=== PATIENT | female | born 1985 | race Hispanic/Latino ===

== ENCOUNTER 2018-03-15 17:30 | Observation (INO) | payer MEDICAID ==
[2018-03-15] MEDS ORDERED: TYLENOL PO ONE (18:41)
[2018-03-15] MEDS ORDERED: LACTATED RINGERS 1,000 ML IV ONE (18:41)
[2018-03-15 19:25] LABS: Bilirubin,Urine NEG (Negative); Blood,Urine NEG (Negative); Color,Urine Yellow (Yellow); Mucus,Urine FEW /HPF; Protein,Urine <15 mg/dL mg/dL (Negative); Urobilinogen,Urine < 2.0 mg/dL (<2.0)
--- NOTE | 2018-03-15 21:08 | History and Physical Report ---
History of Present Illness Date of examination: 03/15/18 History of present illness: Patient presented to the delivery triage with complaint of shortness of breath. The patient's observation her shortness of breath quickly resolves but was found to have persistent uterine contractions. Patient was given IV hydration without complete resolution resolution of contractions patient's cervix dilated 1 cm with no change. Patient was not given terbutaline to 2 complaining of shortness of breath patient about a history of asthma. Will admit for observation and possible sedation. Menstrual History Regularity: irregular Menses every: 30 days Duration: 5 LMP: 08/07/2017 LMP reliability: definite LMP character: heavier test type: urine test Date: 11/09/2017 BC at conception: none Planned ? no EDC Calculations LMP: 05/14/2018 EDC Confirmation: 05/14/2018 Past History : 2 Term Births: 1 Premature Births: 0 Living Children: 1 Para: 1 Mult. Births: 0 Prev : 0 Prev. attempt? 0 Aborta: 0 Elect. Ab: 0 Spont. Ab: 0 Ectopics: 0 # 1 Delivery date: 2013 Weeks Gestation: term labor: no Delivery type: Delivery location: [facility] Sex: Male weight: 9#4 Comments: Shoulder Dystocia Past Medical History: hyperhydrosis Past Surgical History: 2013 - breast augmentation Past Medical History Surgery (Non-respiratory manager): 2013 - breast augmentation Abnormal PAP: negative Family Hx: PGM - colon CA No hx Breast, ovarian or uterine CA Social Hx: Single no ETOH/Drugs/Smoking Infection History Hx of STD: none HIV Risk Eval: no Hepatitis B Risk Eval: low risk Personal hx. of genital herpes: no Partner hx. of genital herpes: no Rash, Viral, or Febrile illness since last LMP? no Varicella/Chicken Pox Status: Previous Disease Genetic History Congenital Heart Defect: Mom: no Dad: no Emi Disease: Mom: no Dad: no Thalassemia Mom: no Dad: no Neural Tube Defect Mom: no Dad: no Down's Syndrome Mom: no Dad: no Julien-Sachs Mom: no Dad: no Sickle Cell Disease/Trait Mom: no Dad: no Hemophilia Mom: no Dad: no Muscular Dystrophy Mom: no Dad: no Cystic Fibrosis Mom: no Dad: no Mag Chorea Mom: no Dad: no Mental Retardation Mom: no Dad: no Fragile X Mom: no Dad: no Other Genetic/Chromosomal Disorder Mom: no Dad: no Child w/other defect Mom: no Dad: no Enviromental Exposures Xray Exposure: no Medication, drug, or alcohol use since LMP: no Chemical/Other Exposure: no Exposure to Cat Liter: no Hx of Parvovirus (Fifth Disease): no Occupational Exposure to Children: none Active Medications (reviewed today): None Current Allergies (reviewed today): No known allergies Past History Social history: other (See HPI) - Obstetrical History Expected Date of Delivery: 05/14/18 Actual Gestation: 32 Week(s) 1 Day(s) : 2 Para: 1 Hx # Term Pregnancies: 1 Number of Pregnancies: 0 Spontaneous Abortions: 0 Induced : 0 Number of Living Children: 1 Medications and Allergies Allergies Allergy/AdvReac Type Severity Reaction Status Date / Time No Known Allergies Allergy Verified 03/15/18 18:22 Home Medications Medication Instructions Recorded Confirmed Last Taken Type Vit-Fe Fumar-FA [ 1 tab PO QDAY 03/15/18 03/15/18 03/15/18 09: 00 History Vitamin] 1 - Vital Signs Vital signs: Vital Signs Pulse Pulse Ox 76 99 03/15/18 17:57 03/15/18 17:57 Temp Pulse Resp BP Pulse Ox 97.7 F 72 18 105/71 98 03/15/18 18:43 03/15/18 20:34 03/15/18 18:43 03/15/18 18:19 03/15/18 20:34 - Physical Exam Breasts: Positive: deferred Cardiovascular: Regular rate Lungs: Positive: Normal air movement Abdomen: Positive: normal appearance, soft Cervix: Positive: other (per RN) Results All other labs normal. Assessment and Plan - Patient Problems (1) uterine contractions in third trimester, antepartum Status: Acute Plan to address problem: We'll admit for observation and rule out labor and possible sedation.
[2018-03-15] MEDS ORDERED: COLACE PO PRN (21:19)
[2018-03-15] MEDS ORDERED: TYLENOL PO PRN (21:19)
[2018-03-15] MEDS ORDERED: D5LR 1,000 ML IV SCH (22:00)
[2018-03-15] MEDS ORDERED: VISTARIL PO ONE (22:18)
[2018-03-16 02:00] VITALS: BP 103/60
[2018-03-16] MEDS ORDERED: PRENATAL VITAMIN PO SCH (10:00)
== END 2018-03-16 02:25 | disposition home or self-care (01) ==
LOC: TRG 17:30 → LD 21:30
PROVIDERS: ADMIT Obstetrics & Gynecology; ATTEND Obstetrics & Gynecology
DX: O60.03 Preterm labor without delivery, third trimester (principal); Z3A.31 31 weeks gestation of pregnancy
CPT/HCPCS: 59025; 81001; 87210; G0378; J7120; 96360; Q0177